=== PATIENT | female | born 1985 | race Caucasian/White ===

== ENCOUNTER 2017-08-13 11:27 | Outpatient (CLI) | payer MEDICAID ==
[~2017-08-13] VITALS: Ht 162.6 cm; Wt 98.4 kg
[~2017-08-13 11:27] MED LIST: PREN-39 PO
[2017-08-13 12:09] VITALS: Ht 162.6 cm; Wt 98.4 kg
[2017-08-13 12:10] VITALS: BP 83/52; RESP 20
--- NOTE | 2017-08-13 12:11 | NSTRPT ---
NST Information Datetime Report Generated by CPN: 08/13/2017 12:10 Datetime: 08/13/2017 09:58 NST Information EGA: 37.5 Test Number: 12 Time on Monitor: 08/13/2017 10:18 Time off Monitor: 08/13/2017 10:42 NST Duration (Min): 24 Reason for NST: Diabetes Mellitus; Other Reason for NST Other: A2DM Test and Monitor Explained: Monitor Explained; Test Explained Pulse: 72 Resp: 16 SBP: 122 DBP: 61 Test Evaluation NST Interventions: None Patient States Movement: Present Contraction Frequency: x1, pt. denies FHR Baseline : 145 Variability: Moderate 6-25bpm Accelerations: 15X15 Decelerations: None FHR Category: Category II NST Results: Questionable Comments: To u/s, cephalic, dawood 7.3, fbs 83 NST _ DAWOOD reviewed by Dr Mendez, requests to have pt go to Triage for extended efm. 1110-Pt galo d and asked to return to [facility], Triage for extended efm. Pt States understanding. Call placed to [facility], report given to Phil Lombardi Electronically Signed By E-Signature: with User ID: [id number] Datetime: 08/09/2017 10:50 NST Information EGA: 37.1 Test Number: 11 Time on Monitor: 08/09/2017 11:10 Time off Monitor: 08/09/2017 11:35 NST Duration (Min): 25 Reason for NST: Diabetes Mellitus Reason for NST Other: A2DM Test and Monitor Explained: Monitor Explained; Test Explained; Verbalized Understanding Pulse: 78 Resp: 17 SBP: 117 DBP: 58 Test Evaluation NST Interventions: Reposition Patient Patient States Movement: Present Contraction Frequency: none FHR Baseline : 140 Variability: Moderate 6-25bpm Accelerations: 15X15 Decelerations: None FHR Category: Category I NST Results: Reactive Comments: Pt to U/S, DAWOOD 11.1cm, cephalic Electronically Signed By E-Signature: with User ID: [id number] Datetime: 08/06/2017 10:20 NST Information EGA: 36.5 NST Duration (Min): 28 Datetime: 08/02/2017 10:43 NST Information EGA: 36.1 NST Duration (Min): 42 Datetime: 07/30/2017 09:52 NST Information EGA: 35.5 NST Duration (Min): 30 Datetime: 07/26/2017 10:10 NST Information EGA: 35.1 NST Duration (Min): 28 Datetime: 07/23/2017 10:00 NST Information EGA: 34.5 NST Duration (Min): 27 Datetime: 07/19/2017 10:45 NST Information EGA: 34.1 NST Duration (Min): 28 Datetime: 07/16/2017 10:30 NST Information EGA: 33.5 NST Duration (Min): 37 Datetime: 07/12/2017 10:03 NST Information EGA: 33.1 NST Duration (Min): 23 Datetime: 07/09/2017 10:05 NST Information EGA: 32.5 NST Duration (Min): 39 Datetime: 07/05/2017 10:20 NST Information EGA: 32.1 Datetime: 07/05/2017 10:10 NST Duration (Min): 29
[2017-08-13] MEDS ORDERED: METF500T4 PO (12:14)
[2017-08-13] MEDS ORDERED: LACTATED RINGER'S 1,000 ML IV ONE (13:30)
[2017-08-13] MEDS ORDERED: LACTATED RINGER'S 1,000 ML IV SCH (13:30)
--- NOTE | 2017-08-13 15:39 | TRIAGE ---
OB Triage Datetime Report Generated by CPN: 08/13/2017 15:38 Datetime: 08/13/2017 14:49 Labor Evaluation Frequency: 1 Monitor Mode: External Duration (sec)2399: 120 Quality: Mild Resting Tone [place]: Relaxed Contraction Comments: pt denies feeling any contractions or pain Heart Rate FHR Baseline Rate: 125 Monitor Mode: External US FHR Baseline Changes: No Baseline Change Variability: Moderate 6-25 bpm Accelerations: 15X15 Decelerations: None Category: Category I Pain Assessment Pain Presence: None/Denies Datetime: 08/13/2017 14:30 Labor Evaluation Frequency: 1 Monitor Mode: External Duration (sec)2399: 60 Quality: Mild Resting Tone [place]: Relaxed Heart Rate FHR Baseline Rate: 130 Monitor Mode: External US FHR Baseline Changes: No Baseline Change Variability: Moderate 6-25 bpm Accelerations: 15X15 Decelerations: None Category: Category I Pain Assessment Pain Presence: None/Denies Datetime: 08/13/2017 12:18 Labor Evaluation Frequency: 0 Monitor Mode: External Resting Tone [place]: Relaxed Heart Rate FHR Baseline Rate: 140 Monitor Mode: External US FHR Baseline Changes: No Baseline Change Variability: Moderate 6-25 bpm Accelerations: 15X15 Decelerations: None Category: Category I Datetime: 08/13/2017 11:54 Assessment Type: Admission Assessment Maternal Assessment Level of Consciousness: Fully Conscious DTR's/Clonus: DTRs 2+; No Clonus Headache: Denies Blurred Vision: No Respiratory Effort: Unlabored; Regular Rhythm; Equal Expansion Breath Sounds, Left: Clear and Equal Breath Sounds, Right: Clear and Equal Nausea/Vomiting: Denies RUQ Epigastric Pain: Denies Facial Edema: None Fall Risk Assessment History of Falling: (0) No Secondary Diagnosis: (0) No Ambulatory Aid: (0) Bedrest/Nurse Assist IV Therapy: (0) No Gait: (0) Normal/Bedrest/Immobile Mental Status: (0) Oriented to Own Ability Fall Score: 0 Fall Risk Score Definition: No Risk: No action required Datetime: 08/13/2017 11:45 Pain Assessment Pain Presence: None/Denies Datetime: 08/13/2017 10:05 Time of Arrival: 08/13/2017 11:51 EGA: 37.5 Arrived By: Ambulatory Arrived From: Other Unit in Hospital Chief Complaint: from nst for further monitoring after decel noted. jaime was 7.3 Movement: Present Contractions: Denies/Absent Rupture of Membranes: Denies Vaginal Bleeding: None Vaginal Discharge: Denies Recent Sexual Intercouse: Denies Abdominal Trauma: Not Applicable Patient Complaints: None Time Provider Notified: 08/13/2017 12:27 Provider Notified: reena Initial Plan: monitor [address] valles, iv and po hydration and repeat jaime
--- NOTE | 2017-08-13 16:21 | RADRPT ---
PROCEDURE: US evaluation of amniotic fluid volume. CLINICAL INDICATION: Low amniotic fluid volume. TECHNIQUE: Multiple sonographic images of the gravid uterus were obtained utilizing toney-scale del ging. Sagittal and transverse images were obtained. The images were reviewed on a PACS workstation . DAWOOD was measured. COMPARISON: No prior studies are available for comparison. FINDINGS: There is a single live intrauterine . heart rate is 134 beats per minute. Position is transverse with head to maternal right. Placenta is anterior right grade II with no abr uption or previa. DAWOOD is 10.6 cm. (Normal = 5-20 cm.) IMPRESSION: 1. DAWOOD is 10.6 cm. RPTAT: QQ .Cheikh Omalley MD, MD Date Time Electronically viewed and signed by .Cheikh Omalley MD, on 08/13/2017 16:20 .R/
--- NOTE | 2017-08-13 16:25 | QN ---
Documentation Comment iup 38 nst vss exam wnl jaime 10 a/p iup 38 weeks jaime wnl false labor dc home DEMETRA ZAPIEN MD Aug 13, 2017 16:25
== END 2017-08-13 17:13 | disposition home or self-care (01) ==
LOC: OBT 11:27 → OBG 11:27 → OBT 17:13
PROVIDERS: ATTEND Obstetrics & Gynecology
DX: O47.1 False labor at or after 37 completed weeks of gestation (principal); Z3A.38 38 weeks gestation of pregnancy
CPT/HCPCS: 36415; 76816; 96360; 96361; J7120; Z7500; G0463

== ENCOUNTER 2017-08-21 10:55 | Inpatient (IN) | payer MEDICAID ==
[~2017-08-21] VITALS: Ht 154.9 cm; Wt 100.0 kg
[~2017-08-21 10:55] MED LIST changes: +METF500T4 PO
[2017-08-21 12:25] LABS: BASOPHIL # 0.1 10^3/ul (0.0-0.1); BASOPHILS % 1.1 % (0.0-2.0); EOSINOPHILS # 0.1 10^3/ul (0.0-0.5); EOSINOPHILS % 2.1 % (0.0-7.0); HEMATOCRIT 39.4 % (37.0-47.0); HEMOGLOBIN 13.3 g/dl (12.0-16.0); LYMPHOCYTES # 1.3 10^3/ul (0.8-2.9); LYMPHOCYTES % 20.8 % (15.0-51.0); MEAN CORPUSCULAR HEMOGLOBIN 32.1 pg (29.0-33.0); MEAN CORPUSCULAR HGB CONC 33.8 g/dl (32.0-37.0); MEAN CORPUSCULAR VOLUME 95.2 fl (82.0-101.0); MONOCYTE # 0.6 10^3/ul (0.3-0.9); MONOCYTES % 9.2 % (0.0-11.0); NEUTROPHILS % 66.1 % (39.0-77.0); PLATELET COUNT 170 10^3/UL (140-415); RED BLOOD COUNT 4.14 10^6/ul (4.20-5.40); RED CELL DISTRIBUTION WIDTH 13.8 % (11.5-14.5); WHITE BLOOD COUNT 6.1 10^3/ul (4.8-10.8)
[2017-08-21 12:27] LABS: ADD UMIC YES; UR ASCORBIC ACID NEGATIVE (NEGATIVE); UR BACTERIA FEW /HPF (NONE SEEN); UR BILIRUBIN (Dip) NEGATIVE (NEGATIVE); UR BLOOD (Dip) 2+ mg/dL (NEGATIVE); UR BUDDING YEAST FEW /HPF (NONE SEEN); UR CLARITY CLEAR (CLEAR); UR COLOR AMBER (YELLOW); UR GLUCOSE (Dip) NEGATIVE (NEGATIVE); UR KETONES (Dip) NEGATIVE (NEGATIVE); UR LEUKOCYTE ESTERASE (Dip) 3+ Leu/ul (NEGATIVE); UR NITRITE (Dip) NEGATIVE (NEGATIVE); UR RBC 8 /HPF (0-5); UR SPECIFIC GRAVITY (Dip) 1.008 (1.003-1.030); UR SQUAMOUS EPITHELIAL CELL FEW /HPF (FEW); UR TOTAL PROTEIN (Dip) 1+ mg/dl (NEGATIVE); UR UROBILINOGEN (Dip) NEGATIVE (NEGATIVE)
[2017-08-21 12:54] LABS: ALBUMIN 3.3 g/dl (3.3-4.9); ALBUMIN/GLOBULIN RATIO 0.94; BILIRUBIN,INDIRECT 0.2 mg/dl (0-1.1); BILIRUBIN,TOTAL 0.2 mg/dl (0.2-1.3); CALCIUM 9.3 mg/dl (8.4-10.2); CREATININE 0.7 mg/dl (0.44-1.00); POTASSIUM 3.8 mmol/L (3.5-5.1); TOTAL PROTEIN 6.8 g/dl (6.1-8.1)
[2017-08-21] MEDS ORDERED: METHYLERGONOVINE 0.2 MG INJ IM PRN (13:30)
[2017-08-21] MEDS ORDERED: CARBOPROST 250 MCG INJ IM PRN (13:30)
[2017-08-21] MEDS ORDERED: MISOPROSTOL 200 MCG TAB PR PRN (13:30)
[2017-08-21] MEDS ORDERED: CEFAZOLIN 2 GM/50 ML (PMX) 50 ML IV SCH (13:30)
[2017-08-21] MEDS ORDERED: OXYTOCIN 30 UNITS/LR 500 ML IV PRN (13:30)
[2017-08-21] MEDS: LACTATED RINGER'S 1,000 ML IV SCH ×2 (13:34→17:10)
[2017-08-21 13:48] VITALS: Ht 154.9 cm; Wt 100.0 kg
[2017-08-21 13:50] VITALS: BP 133/71; PULSE 68; RESP 18
[2017-08-21 13:50] LABS: INR 0.88; PROTIME 11.9 Sec (12.2-14.2); PT RATIO 0.9
[2017-08-21 13:51] LABS: PARTIAL THROMBOPLASTIN TIME 27.5 Sec (25.0-35.0)
[2017-08-21] MEDS ORDERED: OXYTOCIN 30 UNITS/LR 500 ML IV SCH ×3 (14:00)
--- NOTE | 2017-08-21 14:24 | NSTRPT ---
NST Information Datetime Report Generated by CPN: 08/21/2017 14:23 Datetime: 08/20/2017 09:12 NST Information EGA: 38.5 Test Number: 14 Time on Monitor: 08/20/2017 09:31 Time off Monitor: 08/20/2017 10:07 NST Duration (Min): 36 Reason for NST: Diabetes Mellitus; Other Reason for NST Other: A2DM Test and Monitor Explained: Monitor Explained; Test Explained; Verbalized Understanding Pulse: 71 Resp: 18 SBP: 119 DBP: 55 Test Evaluation NST Interventions: Reposition Patient Patient States Movement: Present Contraction Frequency: X1, mild FHR Baseline : 130 Variability: Moderate 6-25bpm Accelerations: 15X15 Decelerations: None FHR Category: Category I NST Results: Reactive Comments: To u/s, DAWOOD 11.4cm, cephalic FBS 73 Electronically Signed By E-Signature: with User ID: [id number] Datetime: 08/15/2017 10:15 NST Information EGA: 38.0 NST Duration (Min): 37 Datetime: 08/13/2017 09:58 NST Information EGA: 37.5 NST Duration (Min): 24 Datetime: 08/09/2017 10:50 NST Information EGA: 37.1 NST Duration (Min): 25 Datetime: 08/06/2017 10:20 NST Information EGA: 36.5 NST Duration (Min): 28 Datetime: 08/02/2017 10:43 NST Information EGA: 36.1 NST Duration (Min): 42 Datetime: 07/30/2017 09:52 NST Information EGA: 35.5 NST Duration (Min): 30 Datetime: 07/26/2017 10:10 NST Information EGA: 35.1 NST Duration (Min): 28 Datetime: 07/23/2017 10:00 NST Information EGA: 34.5 NST Duration (Min): 27 Datetime: 07/19/2017 10:45 NST Information EGA: 34.1 NST Duration (Min): 28 Datetime: 07/16/2017 10:30 NST Information EGA: 33.5 NST Duration (Min): 37 Datetime: 07/12/2017 10:03 NST Information EGA: 33.1 NST Duration (Min): 23 Datetime: 07/09/2017 10:05 NST Information EGA: 32.5 NST Duration (Min): 39 Datetime: 07/05/2017 10:20 NST Information EGA: 32.1 Datetime: 07/05/2017 10:10 NST Duration (Min): 29
[2017-08-22] MEDS: LACTATED RINGER'S 1,000 ML IV SCH ×2 (01:13→20:30)
[2017-08-22] MEDS: DEXTROSE 5%-LR 1,000 ML IV PRN ×2 (01:30→09:27)
[2017-08-22] MEDS ORDERED: BUTORPHANOL 2 MG INJ IV ONE (03:30)
--- NOTE | 2017-08-22 14:27 | HP ---
Date/Time of Note Date/Time of Note DATE: 08/22/17 TIME: 14:24 OB - History Hx of Present Free Text/Dictation Sent in by clinic because of elevation of blood pressure at 38 weeks and 6 days Denies headache blurred vision or epigastric pain Noticed to have plus proteinuria in clinic Chief Complaint: None Last Menstrual Period: Nov 22, 2016 Estimated Due Date: Aug 29, 2017 : 2 Para: 1 Care: Good Care Obstetrical Complications: Gestational Diabetes, Other (Possible gestational hypertension) Medical Complications: Other (Previous 1) Past Family/Social History * Past Medical, Surgical, Family and Obstetric Histories reviewed from chart. Blood Type: O+ Rubella: immune RPR/VDRL: Negative GBS Status: Negative HBsAG: Negative OB Admission Exam Vital Signs Vital Signs Vital Signs Date Time Temp Pulse Resp B/P Pulse Ox O2 Delivery O2 Flow Rate FiO2 08/21/17 13:50 98.2 68 18 133/71 Room Air Physical Exam HEENT: WNL Heart: Rhythm Normal Lungs: Clear, Equal Abdomen: WNL Extremities: Normal Reflexes: Normal Cervical Dilatation: None Effacement: 0% Station: -3 Membranes: Intact Heart Rate: 140's Accelerations: Accelerations Present Decelerations: No Decelerations Varibility: Moderate Contractions on Admission: 6-10 Minutes Apart Last 72 hourBlood Glucose Bedside Glucose - 72 Hours Test 08/21/17 20:49 08/22/17 01:15 08/22/17 05:05 08/22/17 09:24 Bedside Glucose 75mg/dL (70-220) 68mg/dL (70-220) L 84mg/dL (70-220) 81mg/dL (70-220) Test 08/22/17 12:54 Bedside Glucose 66mg/dL (70-220) L Last 72 hours Lab Results CBC & BMP 08/21/17 11:10 Liver Function Test 08/21/17 11:10 Alanine Aminotransferase (ALT/SGPT) 47 Albumin 3.3 Alkaline Phosphatase 189 H Aspartate Amino Transf (AST/SGOT) 35 Direct Bilirubin 0.00 Total Protein 6.8 OB Assessment/Plan Other Assessment: 38 weeks and 6 days gestation Class A-II DM Review of 1 Possible gestational hypertension Other plan: Patient was admitted for repeat KEYON GATES MD Aug 22, 2017 14:27
[2017-08-22] MEDS ORDERED: ZOLPIDEM 5 MG TAB PO PRN (14:30)
[2017-08-22] MEDS ORDERED: ONDANSETRON 4 MG INJ IV PRN ×2 (14:30→17:30)
[2017-08-22] MEDS ORDERED: morphine 4 MG/ML VIAL IV PRN ×2 (14:30→17:30)
[2017-08-22] MEDS ORDERED: NALOXONE (0.4 MG/ML) INJ IV PRN ×3 (14:30→18:00)
[2017-08-22] MEDS ORDERED: morphine 2 MG INJ IV PRN ×2 (14:30→17:30)
[2017-08-22] MEDS ORDERED: KETOROLAC 30 MG INJ IV PRN (14:30)
[2017-08-22] MEDS ORDERED: DIPHENHYDRAMINE 50 MG INJ IV PRN ×3 (14:30→23:30)
--- NOTE | 2017-08-22 14:30 | OPR ---
Operative Report Planned Procedure Procedure date Aug 22, 2017 Procedure(s) Repeat delivery Lysis of omental adhesions Performed by see signature line Photolithographer Dr. Bauman Anesthesiologist: GILA MORIN Pre-procedure diagnosis Term gestation Morbid obesity Class A2 diabetes Previous 1 Possible gestational hypertension Anesthesia Type: spinal Post-Procedure Post-procedure diagnosis Status post repeat Findings Live Baby in OT position There are amniotic fluid Estimated Blood Loss: 500 - 600 mls Specimen(s) none Grafts/Implant(s) none Complication(s) none Pt Condition post procedure: stable Disposition: PACU Procedure Description Under satisfactory anaesthesia a Pfannenstiel incision was made two fingerbreadth above and parallel to the symphysis of pubis around the previous scar and previous scar was removed Incision was extended laterally to the border of the Recti muscles on either sides. Incision was carried down with sharp and blunt dissection until fascia was reached. Anterior Recti muscle fascia was incised in mid portion and incision extended laterally to the border of skin incision. Fascia was mobilized from muscle superiorly and Recti muscles were from midline using sharp and blunt dissection. Peritoneum was visualized; Avoiding bowel and bladder it was incised . Incision was extended superiorly and inferiorly. Bladder blade was placed. Posterior peritoneum covering the lower segment of the uterus and lower segment of the uterus were incised.Low transverse uterine incision was made on lower segment of the uterus. Incision extended laterally to the border of Round Lig. on either sides and baby was delivered from OT. position . Amniotic fluid appeared clear. Cord blood was obtained and cord had 3 vessels . Placenta was delivered spontaneously and appeared intact and complete. Intrauterine cavity was rubbed with a laparotomy sponge. Uterine incision was closed in 2 layers using running stitches of No1 Monocryl. Hemostasis appeared secure. Ovaries and Fallopian tubes were within normal limits. Omental adhesions to anterior abdominal wall were lysed and ligated using 0 Vicryl stitch Announcing needle, lap sponge and instrument count to be correct abdomen was closed in layers as follows: Peritoneum and Recti muscles with running stitches of 20 Vicryl. Fascia with running stitch of No 1 PDS. Subcutaneous tissue with running stitches of 20 Chromic and skin was closed using kierra. Patient tolerated the procedure well and was transferred to [facility] in good condition. KEYON GATES MD Aug 22, 2017 14:30
[2017-08-22] MEDS ORDERED: VANCOMYCIN 1 GM (PMX) 250 ML IVPB SCH (15:00)
[2017-08-22] MEDS ORDERED: LANOLIN 7 GM TUBE TOP PRN (17:30)
[2017-08-22] MEDS ORDERED: CARBOPROST 250 MCG INJ IM PRN (17:30)
[2017-08-22] MEDS ORDERED: GLUCAGON 1 MG INJ IM PRN (17:30)
[2017-08-22] MEDS ORDERED: NA PHOSPHATE/BIPHOS 133 ML ENEMA PR PRN (17:30)
[2017-08-22] MEDS ORDERED: METHYLERGONOVINE 0.2 MG INJ IM PRN (17:30)
[2017-08-22] MEDS ORDERED: MISOPROSTOL 200 MCG TAB PR PRN (17:30)
[2017-08-22] MEDS ORDERED: GLUCOSE GEL 15 GRAM TUBE PO PRN ×2 (17:30)
[2017-08-22] MEDS ORDERED: OXYTOCIN 30 UNITS/LR 500 ML IV PRN (17:30)
[2017-08-22] MEDS ORDERED: DEXTROSE 50% 50 ML SYRINGE IV PRN ×2 (17:30)
[2017-08-22] MEDS ORDERED: GLUCOSE GEL 15 GRAM TUBE BUCCAL PRN (17:30)
[2017-08-22 18:15] VITALS: BP 130/67; PULSE 68; RESP 20
[2017-08-22 18:45] VITALS: BP 135/67; PULSE 63; RESP 20
[2017-08-22 20:00] VITALS: BP 127/66; PULSE 73; RESP 18
[2017-08-22] MEDS: ACCU-CHEK XX SCH (20:05)
[2017-08-22] MEDS: metFORMIN (XR) 500 MG TAB PO SCH (21:00)
[2017-08-22] MEDS: SENNA/DOCUSATE NA (8.6MG/50MG) TAB PO SCH (21:00)
[2017-08-22] MEDS: KETOROLAC 30 MG INJ IV PRN (23:56)
[2017-08-23] VITALS: BP 131/63; PULSE 63; RESP 18
[2017-08-23] MEDS: CEFAZOLIN 2 GM/50 ML (PMX) 50 ML IV SCH ×3 (00:03→16:57)
[2017-08-23 04:00] VITALS: BP 116/58; PULSE 74; RESP 17
[2017-08-23] MEDS: LACTATED RINGER'S 1,000 ML IV SCH ×2 (04:30→14:47)
[2017-08-23] MEDS: CLINDAMYCIN 300 MG CAP PO SCH ×5 (06:12→23:57)
[2017-08-23] MEDS: ACCU-CHEK XX SCH ×4 (07:30→21:01)
[2017-08-23 08:20] VITALS: BP 116/67; PULSE 76; RESP 18
[2017-08-23] MEDS: ENOXAPARIN 40 MG/0.4 ML SYG SC SCH (08:47)
[2017-08-23] MEDS: SENNA/DOCUSATE NA (8.6MG/50MG) TAB PO SCH ×2 (08:51→21:01)
[2017-08-23] MEDS: metFORMIN (XR) 500 MG TAB PO SCH ×2 (09:04→21:01)
[2017-08-23 09:45] LABS: BASOPHILS % 0.3 % (0.0-2.0); EOSINOPHILS % 0.4 % (0.0-7.0); HEMATOCRIT 32.3 % (37.0-47.0); HEMOGLOBIN 11.1 g/dl (12.0-16.0); LYMPHOCYTES % 21.9 % (15.0-51.0); MEAN CORPUSCULAR HEMOGLOBIN 32.4 pg (29.0-33.0); MEAN CORPUSCULAR HGB CONC 34.4 g/dl (32.0-37.0); MEAN CORPUSCULAR VOLUME 94.2 fl (82.0-101.0); MEAN PLATELET VOLUME 10.2 fl (7.4-10.4); MONOCYTE # 0.7 10^3/ul (0.3-0.9); MONOCYTES % 7.4 % (0.0-11.0); NEUTROPHIL # 6.3 10^3/ul (1.6-7.5); NEUTROPHILS % 69.4 % (39.0-77.0); PLATELET COUNT 150 10^3/UL (140-415); RED BLOOD COUNT 3.43 10^6/ul (4.20-5.40); RED CELL DISTRIBUTION WIDTH 13.7 % (11.5-14.5); WHITE BLOOD COUNT 9.1 10^3/ul (4.8-10.8)
[2017-08-23] MEDS ORDERED: BISACODYL 10 MG SUPP PR ONE (10:30)
[2017-08-23] MEDS: KETOROLAC 30 MG INJ IV PRN (11:24)
[2017-08-23 11:26] VITALS: BP 125/68; PULSE 82; RESP 19
[2017-08-23] MEDS: IBUPROFEN 800 MG TAB PO SCH ×2 (14:00→22:19)
--- NOTE | 2017-08-23 14:46 | PN ---
Date/Time of Note Date/Time of Note DATE: 08/23/17 TIME: 14:45 Assessment/Plan VTE Prophylaxis VTE Prophylaxis Intervention: ambulation Lines/Catheters IV Catheter Type (from Nrsg): Peripheral IV Assessment/Plan Assessment/Plan Status post postop day 1 Advance diet and ambulate Continue to monitor vital signs Subjective 24 Hr Interval Summary No bowel movement Passing flatus Constitutional: BM, ambulates, flatus, improved, no complaints, urine output Pain Control: well controlled Exam/Review of Systems Vital Signs Vitals Vital Signs Date Time Temp Pulse Resp B/P Pulse Ox O2 Delivery O2 Flow Rate FiO2 08/23/17 11:26 99.2 82 19 125/68 Room Air Intake and Output 08/22/17 08/22/17 08/23/17 14:59 22:59 06:59 Intake Total 125 ml 500 ml 1050 ml Output Total 1600 ml 700 ml Balance 125 ml -1100 ml 350 ml Exam Free Text/Dictation Abdomen is soft and not distended and bowel sounds are present Incision is covered Constitutional: alert, oriented, well developed Psych: nl mood/affect, no complaints Head: atraumatic, normocephalic Eyes: EOMI, nl conjunctiva, nl lids, nl sclera ENMT: mucosa pink and moist, nl external ears & nose, nl lips & teeth, nl nasal mucosa & septum Neck: non-tender, supple Respiratory: clear to auscultation, normal air movement Cardiovascular: nl pulses, regular rate and rhythm Gastrointestinal: nl liver, spleen, non-tender, soft Drains None Musculoskeletal: nl extremities to inspection, nl gait and stance Extremities: normal pulses Neurological: MANAGER ERP II-XII intact, nl mental status, nl speech, nl strength Skin: nl turgor, rash or lesions Lymph: nl lymph nodes Results Result Diagram: 08/23/17 0907 08/21/17 1110 KEYON GATES MD Aug 23, 2017 14:46
[2017-08-23] MEDS: OXYCODONE/ACETAMINOPHEN (5/325) TAB PO PRN (15:19)
[2017-08-23 16:50] VITALS: BP 140/72; PULSE 90; RESP 20
[2017-08-23 20:00] VITALS: BP_SYST 121; BP_SYST 130; BP_DIAS 58; BP_DIAS 71; PULSE 74; PULSE 85; RESP 18; RESP 19
[2017-08-24] MEDS: OXYCODONE/ACETAMINOPHEN (5/325) TAB PO PRN ×2 (01:11→23:41)
[2017-08-24 04:00] VITALS: BP 126/61; PULSE 77; RESP 19
[2017-08-24] MEDS: IBUPROFEN 800 MG TAB PO SCH ×3 (06:14→21:22)
[2017-08-24] MEDS: CLINDAMYCIN 300 MG CAP PO SCH ×4 (06:14→23:40)
[2017-08-24] MEDS: ACCU-CHEK XX SCH ×4 (07:30→21:02)
[2017-08-24 07:50] VITALS: BP 122/64; PULSE 77; RESP 18
[2017-08-24] MEDS: HYDROCODONE/APAP (5/325) TAB PO PRN ×2 (08:00→12:18)
[2017-08-24] MEDS: metFORMIN (XR) 500 MG TAB PO SCH ×2 (08:51→21:06)
[2017-08-24] MEDS: SENNA/DOCUSATE NA (8.6MG/50MG) TAB PO SCH ×2 (08:51→21:06)
[2017-08-24] MEDS: ENOXAPARIN 40 MG/0.4 ML SYG SC SCH (08:52)
[2017-08-24] MEDS ORDERED: INFLUENZA VIRUS VACCINE 0.5 ML (DISPENSING) IM* ONE (09:00)
--- NOTE | 2017-08-24 14:58 | DS ---
Date/Time of Note Date/Time of Note Home next day DATE: 08/24/17 TIME: 14:57 Obstetrical Discharge Record Final Diagnosis Final Diagnosis: Term delivered Other Final Diagnosis Status post repeat Section Section: Repeat Complications Gestational Diabetes Condition on Discharge Physical Assessment Last Vitals: See nurse's notes Voiding: Yes Bowel Movement: Yes Breast: Soft, non-tender, Filling Fundus: Firm Abdomen and Incision: Abdomen is soft bowel sounds present Incision is without induration or erythema Calf Tenderness: No Patient Condition: Good KEYON GATES MD Aug 24, 2017 14:58
--- NOTE | 2017-08-24 15:00 | DS ---
Date/Time of Note Date/Time of Note DATE: 08/24/17 TIME: 14:58 Discharge Summary Admission/Discharge Info Admit Date/Time Aug 21, 2017 at 12:58 Discharge Date/Time August 25, 2017 Discharge Diagnosis Status post repeat Patient Condition: Good Procedures Repeat delivery Hx of Present Illness 32-year-old female underwent repeat section Patient with gestational diabetes and had normal sugars on diet and metformin Hospital Course Uncomplicated Home Meds Reported Medications Metformin* (Glucophage*) 500 Mg Tab, 500 MG PO QPM, #30 TAB 08/13/17 Vits W-Ca,Fe,Fa(<1MG) ( Vitamins) 1 Tab Tablet, 1 TAB PO DAILY 02/23/14 Follow-up Plan 3 days in clinic for staple removal Primary Care Provider Care Physician No Primary Time spent on discharge: > 30 minutes Pending Labs Laboratory Tests Test 08/23/17 15:08 08/23/17 20:59 08/24/17 07:42 08/24/17 08:22 Bedside Glucose 83mg/dL (70-220) 105mg/dL (70-220) 73mg/dL (70-220) Hepatitis B Surface Antigen NEGATIVE (NEGATIVE) Test 08/24/17 10:58 Bedside Glucose 108mg/dL (70-220) KEYON GATES MD Aug 24, 2017 15:00
--- NOTE | 2017-08-24 15:01 | PD.PPDC ---
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 Provider Information Physician Information 32-year-old female underwent repeat section Diagnosis Final Diagnosis: Status post repeat Condition Patient Condition: Good Diet Diet: Special Diet (1800-calorie ADA diet) Special Diet: 1800-calorie ADA diet Activity/Restrictions Activity: May Shower Restrictions: No Exercising No Lifting Nothing in the Vagina Return to Work or School: Oct 29, 2017 Follow-up Follow-up with Physician: 2, 3, Day/Days (In clinic for staple removal) Return to clinic for PHOTO MANAGER Instructions: Fever greater than 101 Chills OB Instructions: Breast Tenderness Depression Comment: Pelvic shows no heart activity for 2 months Surgical Instructions: Incisional Drainage Incisional Redness KEYON GATES MD Aug 24, 2017 15:01
[2017-08-24] MEDS ORDERED: METF500T3 PO (15:03)
[2017-08-24] MEDS ORDERED: IBUP800T25 PO (15:03)
[2017-08-24 16:00] VITALS: BP 114/56; PULSE 72; RESP 18
[2017-08-24 20:00] VITALS: BP 121/58; PULSE 74; RESP 18
[2017-08-25 04:00] VITALS: BP 114/61; PULSE 70; RESP 18
[2017-08-25] MEDS: CLINDAMYCIN 300 MG CAP PO SCH ×2 (05:56→12:22)
[2017-08-25] MEDS: IBUPROFEN 800 MG TAB PO SCH ×2 (05:56→14:27)
[2017-08-25 08:00] VITALS: BP 102/56; PULSE 68; RESP 18
[2017-08-25] MEDS: metFORMIN (XR) 500 MG TAB PO SCH (08:45)
[2017-08-25] MEDS: SENNA/DOCUSATE NA (8.6MG/50MG) TAB PO SCH (09:00)
[2017-08-25] MEDS ORDERED: MEASLES,MUMPS,RUBELLA VACCINE INJ SC* ONE (09:00)
[2017-08-25] MEDS ORDERED: DIPHTH/TET/ACEL PERTUSS (ADULT) 0.5 ML VIAL IM* ONE (09:00)
[2017-08-25] MEDS: ENOXAPARIN 40 MG/0.4 ML SYG SC SCH (09:47)
[2017-08-25 16:00] VITALS: BP 122/59; RESP 17
== END 2017-08-25 16:55 | disposition home or self-care (01) | DRG 765 ==
LOC: L-D 10:55 → OBT 10:55 → L-D 12:58 → PP1 08-22 18:29
PROVIDERS: ADMIT Obstetrics & Gynecology; ATTEND Obstetrics & Gynecology
PROC: 10D00Z1 Extraction of Products of Conception, Low, Open Approach (ICD-10-PCS; principal; 2017-08-22)
PROC: 3E033VJ Introduction of Other Hormone into Peripheral Vein, Percutaneous Approach (ICD-10-PCS; 2017-08-22)
DX: O13.4 Gestational [pregnancy-induced] hypertension without significant proteinuria, complicating childbirth (principal); Z68.41 Body mass index [BMI] 40.0-44.9, adult; O24.429 Gestational diabetes mellitus in childbirth, unspecified control; O99.214 Obesity complicating childbirth; E66.01 Morbid (severe) obesity due to excess calories; O34.211 Maternal care for low transverse scar from previous cesarean delivery; Z3A.38 38 weeks gestation of pregnancy; Z37.0 Single live birth
CPT/HCPCS: 36415; 62319; 80053; 81001; 82947; 82962; 84560; 85025; 85610; 85730; 86592; 86850; 86900; 86901; 87340; 90686; 90715; 99464; G0463; J0595; J0690; J1650; J1885; J2590; J3370; J7120